=== PATIENT | female | born 1995 | race Hispanic/Latino ===

== ENCOUNTER 2024-02-24 19:28 | Emergency (ER) | payer OTHER, SELFPAY ==
[2024-02-24] MEDS ORDERED: HYDROCODONE/APAP 5/325 MG TAB ONE (19:43)
[2024-02-24] MEDS ORDERED: KETOROLAC 30 MG/ML INJ ONE (19:43)
[2024-02-24] MEDS ORDERED: dexAMETHasone 10 MG/ML VIAL ONE (19:43)
[2024-02-24] MEDS ORDERED: DIAZEPAM 5 MG TABLET ONE (19:46)
[2024-02-24 22:00] LABS: Specific Gravity 1.025 (1.005-1.030)
[2024-02-24 22:02] LABS: Specific Gravity 1.025 (1.005-1.030); Sqamous Epithelial <5 /HPF (None Seen); Urine Bacteria None Seen /HPF (<20); Urine Bilirubin NEGATIVE (Negative); Urine Blood Negative (Negative); Urine Clarity Clear (Clear); Urine Color Light-Yellow (Yellow); Urine Crystals Unidentified Few /HPF (None Seen); Urine Culture Reflex Order NOT NEEDED; Urine Glucose NEGATIVE (Negative); Urine Ketones 1+ (Negative); Urine Microscopic Reflex YN ORDER UMIC; Urine Mucus 3+ /HPF (None Seen); Urine Nitrite NEGATIVE (Negative); Urine Protein TRACE (Negative); Urine RBC <5 /HPF (None Seen); Urine Urobilinogen 1+ (Normal); Urine WBC <5 /HPF (<5); Urine pH 8.5 (5.0-7.0)
--- NOTE | 2024-02-24 22:23 | ER ---
Nurse's Notes [facility] Name: Tere Hurtado Age: 28 yrs Sex: Female : 1995 Arrival Date: 02/24/2024 Time: 19:28 Bed 9 Private MD: Diagnosis: Low back pain Presentation: 02/23 19:37 Chief complaint: Patient states: "This afternoon, my lower back started hurting and mb9 radiates down both legs. I didn't fall or have injury. I have numbness/tingling in my lower legs. I can barley walk.". Coronavirus screen: At this time, the client does not indicate any symptoms associated with coronavirus-19. Ebola Screen: No symptoms or risks identified at this time. Initial Sepsis Screen: Does the patient meet any 2 criteria? No. Patient's initial sepsis screen is negative. Does the patient have a suspected source of infection? No. Patient's initial sepsis screen is negative. Risk Assessment: Do you want to hurt yourself or someone else? Patient reports no desire to harm self or others. Onset of symptoms was February 24, 2024. 19:37 Acuity: GOLDEN 3 mb9 19:37 Method Of Arrival: Wheelchair mb9 Triage Assessment: 19:40 General: Appears uncomfortable, Behavior is anxious, crying. Pain: Complains of pain in mb9 back Pain radiates to right leg and left leg Pain currently is 10 out of 10 on a pain scale. Quality of pain is described as sharp, shooting, Pain began suddenly, Is continuous. EENT: No signs and/or symptoms were reported regarding the EENT system. Neuro: Rodriguez Agitation-Sedation Scale (RASS): 0 - Alert and Calm Level of Consciousness is awake, alert, obeys commands, Oriented to person, place, time, situation, Appropriate for age. Cardiovascular: Patient's skin is warm and dry. Respiratory: Airway is patent Respiratory effort is even, unlabored, Respiratory pattern is regular, symmetrical. GI: No signs and/or symptoms were reported involving the gastrointestinal system. : No signs and/or symptoms were reported regarding the genitourinary system. Derm: Skin is pink, warm \\T\\ dry. Musculoskeletal: Range of motion: limited in back and bilateral legs. 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 - Infectious Disease History:: Denies. - Social history:: Smoking status: Patient denies any tobacco usage or history of. Screenin:51 [facility] ED Fall Risk Assessment (Adult) History of falling in the last 3 months, mb9 including since admission No falls in past 3 months (0 pts) Confusion or Disorientation No (0 pts) Intoxicated or Sedated No (0 pts) Impaired Gait Yes (1 pt) Mobility Assist Device Used Yes (1 pt) Altered Elimination No (0 pt) Score/Fall Risk Level 3 or more points = High Risk Oriented to surroundings, Maintained a safe environment, Educated pt \\T\\ family on fall prevention, incl call for assistance when getting out of bed. Abuse screen: Denies threats or abuse. Nutritional screening: No deficits noted. Tuberculosis screening: No symptoms or risk factors identified. Assessment: 19:51 Reassessment: see triage assessment. mb9 20:09 General: Appears in no apparent distress. Behavior is calm, cooperative, appropriate vc1 for age. Pain: Complains of pain in back Pain radiates to left leg and right leg Quality of pain is described as sharp, shooting. Neuro: Level of Consciousness is awake, alert, obeys commands, Oriented to person, place, time, situation, Appropriate for age. Cardiovascular: Heart tones S1 S2 Capillary refill < 3 seconds Patient's skin is warm and dry. Rhythm is regular. Respiratory: Airway is patent Respiratory effort is even, unlabored, Respiratory pattern is regular, symmetrical, Breath sounds are clear bilaterally. GI: No deficits noted. No signs and/or symptoms were reported involving the gastrointestinal system. : No deficits noted. No signs and/or symptoms were reported regarding the genitourinary system. EENT: No deficits noted. No signs and/or symptoms were reported regarding the EENT system. Derm: Skin is intact, is healthy with good turgor, Skin is dry, Skin is normal, Skin temperature is warm. Musculoskeletal: Reports pain in left leg and right leg and back. 23:01 Reassessment: Patient and/or family updated on plan of care and expected duration. Pain vc1 level reassessed. Patient is alert, oriented x 3, equal unlabored respirations, skin warm/dry/pink. Patient states feeling better. Patient states symptoms have improved. Vital Signs: 19:37 BP 113 / 80; Pulse 96; Resp 16; Temp 98.2; Pulse Ox 100% on R/A; Weight 81.65 kg; mb9 Height 5 ft. 2 in. ; Pain 10/10; 23:01 BP 110 / 78; Pulse 88; Resp 17; Pulse Ox 100% ; vc1 19:37 Body Mass Index 32.92 (81.65 kg, 157.48 cm) mb9 19:37 Pain Scale: Adult mb9 ED Course: 19:30 Patient arrived in ED. mr 19:34 Sigifredo Marybeth, [facility] kb 19:34 Alli Ma MD is Attending Physician. kb 19:40 Triage completed. mb9 19:40 Arm band placed on. mb9 19:52 Sharmaine Zendejas, TRUDY is Primary Nurse. mb9 19:52 Bed in low position. Call light in reach. Side rails up X 1. Adult w/ patient. Provided mb9 Education on: press call light if needing anything. Client placed on continuous cardiac and pulse oximetry monitoring. NIBP monitoring applied. 19:52 No provider procedures requiring assistance completed. mb9 21:57 Urinalysis w/ reflexes Sent. oe 21:57 Test, Urine Sent. oe 23:01 Patient did not have IV access during this emergency room visit. vc1 Administered Medications: 19:51 Drug: Ketorolac IM 30 mg IM once Route: IM; Site: left deltoid; mb9 19:51 Drug: Dexamethasone IM 10 mg IM once Route: IM; Site: right deltoid; mb9 19:51 Drug: Diazepam PO 5 mg PO once Route: PO; mb9 19:51 Drug: HYDROcodone-acetaminophen PO 5 mg-325 mg 1 tabs PO once Route: PO; mb9 Medication: 19:52 VIS not applicable for this client. mb9 Outcome: 22:22 Discharge ordered by . kb 23:00 Discharged to home ambulatory, vc1 23:00 Condition: good 23:00 Discharge instructions given to patient, Instructed on discharge instructions, follow up and referral plans. Demonstrated understanding of instructions, follow-up care, Prescriptions given X 3, 23:02 Patient left the ED. vc1 Signatures: Marybeth Mei, KIMBERLEY-C WARPER FIXER-Sharmaine Langford Reg Reg mr EspinosaMarlon Vanessa RN RN vc1 Sharmaine Zendejas, RN RN mb9
--- NOTE | 2024-02-24 22:23 | EDPHYS ---
Physician Documentation [facility] Name: Tere Hurtado Age: 28 yrs Sex: Female : 1995 Arrival Date: 02/24/2024 Time: 19:28 Bed 9 Private MD: ED Physician Alli Ma HPI: 02/23 22:31 This 28 yrs old Female presents to ER via Wheelchair with complaints of Back kb Pain, Leg Pain. 22:31 Pt is a 28 year old female who presents with low back pain that started a few hours kb ago. States she was laying down when she started to have some pain and the pain became more and more severe. States the pain radiates to buttock. Denies numbness, tingling, urinary symptoms, bladder/bowel incontinence/retention. Denies injury or trauma. . 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 - Infectious Disease History:: Denies. - Social history:: Smoking status: Patient denies any tobacco usage or history of. ROS: 22:29 Constitutional: As per HPI kb Exam: 22:29 Head/Face: Normocephalic, atraumatic. ENT: Moist Mucous membranes Cardiovascular: kb Regular rate Respiratory: Respirations even and unlabored. No increased work of breathing. Talking in full sentences Abdomen/GI: Soft, non-tender. No distention Skin: Warm, dry with normal turgor. Normal color. MS/ Extremity: Pulses equal, no cyanosis. Neurovascular intact. Full, normal range of motion. Neuro: Awake and alert, GCS 15, oriented to person, place, time, and situation. Moves all extremities. Normal gait. 22:29 Constitutional: The patient appears alert, awake, in obvious pain, kb 22:29 Back: pain, that is moderate, of the low back area, Vital Signs: 19:37 BP 113 / 80; Pulse 96; Resp 16; Temp 98.2; Pulse Ox 100% on R/A; Weight 81.65 kg; mb9 Height 5 ft. 2 in. ; Pain 10/10; 23:01 BP 110 / 78; Pulse 88; Resp 17; Pulse Ox 100% ; vc1 19:37 Body Mass Index 32.92 (81.65 kg, 157.48 cm) mb9 19:37 Pain Scale: Adult mb9 MDM: 19:34 Patient medically screened. kb 22:30 Differential diagnosis: uti, strain, fracture, sciatica. Data reviewed: vital signs, kb nurses notes. Test considered but Not performed: X-ray: x-ray considered but pt denies injury or trauma . Counseling: I had a detailed discussion with the patient and/or guardian regarding the historical points, exam findings, and any diagnostic results supporting the discharge/admit diagnosis, lab results, the need for outpatient follow up, a family practitioner, to return to the emergency department if symptoms worsen or persist or if there are any questions or concerns that arise at home. ED course: Symptoms improved after treatment. Pt ready to go home. 02/23 19:40 Order name: Test, Urine; Complete Time: 22:18 kb 02/23 19:40 Order name: Urinalysis w/ reflexes; Complete Time: 22:18 kb Administered Medications: 19:51 Drug: Ketorolac IM 30 mg IM once Route: IM; Site: left deltoid; mb9 19:51 Drug: Dexamethasone IM 10 mg IM once Route: IM; Site: right deltoid; mb9 19:51 Drug: Diazepam PO 5 mg PO once Route: PO; mb9 19:51 Drug: HYDROcodone-acetaminophen PO 5 mg-325 mg 1 tabs PO once Route: PO; mb9 Disposition Summary: 02/24/24 22:22 Discharge Ordered Notes: Location: Home kb Condition: Stable kb Diagnosis - Low back pain kb Followup: kb - With: Emergency Department - When: As needed - Reason: Worsening of condition Followup: kb - With: Private Physician - When: 2 - 3 days - Reason: Recheck today's complaints, Continuance of care, Re-evaluation by your physician Discharge Instructions: - Discharge Summary Sheet kb - Acute Back Pain, Adult kb - Musculoskeletal Pain kb Forms: - Work release form kb - Family Work Release kb - Medication Reconciliation Form kb - Antibiotic Education kb - Prescription Opioid Use kb - Patient Portal Instructions kb - Leadership Thank You Letter kb Prescriptions: - Prednisone 20 mg Oral Tablet - take 1 tablet ORAL route once daily for 5 days; 5 tablet; Refills: 0, Product kb Selection Permitted - Diclofenac Sodium 75 mg Oral tablet, delayed release (enteric coated) - take 1 tablet ORAL route 2 times per day As needed; 30 tablet; Refills: 0, kb Product Selection Permitted - orphenadrine citrate 100 mg Oral Tablet Sustained Release - take 1 tablet ORAL route 2 times per day As needed; 20 tablet; Refills: 0, kb Product Selection Permitted Signatures: Dispatcher [employer] EDNM Marybeth Mei, KIMBERLEY-C PSYCH SOCIAL WORKER-Sharmaine Cazares RN RN mb9 Corrections: (The following items were deleted from the chart) 19:41 19:41 Test, Urine+UC.LAB.BRZ ordered. EDNM EDMS 19:41 19:41 Urinalysis+U.LAB.BRZ ordered. EDNM EDMS 22:30 22:29 Constitutional: This is a well developed, well nourished patient who is awake, kb alert, and in no acute distress. kb 22:32 22:31 Pt is a 28 year old female who presents with low back pain that started a few kb hours ago. States she was laying down when she started to have some pain and the pain became more and more severe. States the pain radiates to buttock. Denies numbness, tingling, urinary symptoms, bladder/bowel incontinence/retention. . kb
[2024-02-24 23:13] VITALS: TEMP 98.2; O2SAT 100
[2024-02-24 23:17] VITALS: BP 110/78
== END 2024-02-24 23:02 | disposition home or self-care (01) ==
LOC: ER 19:28
DX: M54.50 Low back pain, unspecified (principal)
CPT/HCPCS: 81001; 81025; J1100

== ENCOUNTER 2024-08-15 10:47 | Emergency (ER) | payer OTHER ==
--- OUTSIDE RECORDS SUMMARY | 2024-08-15 10:50 | XMS REPORT | Continuity of Care Document ---
Author Name Unknown Address [address] [facility] [place]. [address] th[address] Address [address] [facility]. [address] [place] [address] Care Team Providers Care Bracelet And Brooch Maker Name Role Phone [email or web address] Attending Clinician CHRISTINA Burnette Attending Clinician Unavailable Christina Grider PA-C Attending Clinician [phone] Sudha Vazquez MD Attending Clinician [phone] Morgan Womack Attending Clinician [phone] [email or web address] Admitting Clinician Joaquin elkins Payers Payer Name Policy Type Policy Number Effective Date Expirati on Date Source [facility] STATE [id number] 2018 00:00:00 Problems Condition Name Condition Details Condition Category Status Onset Date Resolution Date Last Treatment Date Treating Clinician Comments Source Obesity (BMI 30-39.9) Obesity (BMI 30-39.9) Disease Active 8-19 00:00: 00 [facility] Nausea and vomiting during prior to 22 weeks gestation Nausea and vomiting during prior to 22 weeks gestation Disease Active 3-13 00:00: 00 [facility] Obesity in Obesity in Disease Active 2 00:00: 00 [facility] Chlamydia trachomati s infection in mother during , antepartum Chlamydia trachomati s infection in mother during , antepartum Disease Active 2 00:00: 00 [facility] Rubella non-immune status, antepartum Rubella non-immune status, antepartum Disease Active 08-25 00:00: 00 Overview: Address in [place] mKatiana [facility] Primigravi da in second trimester Primigravi da in second trimester Disease Active 08-25 00:00: 00 [facility] High risk , antepartum High risk , antepartum Disease Active 08-24 00:00: 00 [facility] Allergies, Adverse Reactions, Alerts Allergy Name Allergy Type Status Severity Reaction(s) Onset Date Inactive Date Treating Clinician Comments Source NO KNOWN ALLERGIE S Drug Class Active [facility] Social History Social Habit Start Date Stop Date Quantity Comments Source ASSERTION 2018-08-04 00:00:00 [facility] Alcohol intake [facility] Sex Assigned At [facility] Smoking Status Start Date Stop Date Source Never smoker [facility] Medications Ordered Medication Name Filled Medication Name Start Date Stop Date Current Medication? Ordering Clinician Indication Dosage Frequency Signature (SIG) Comments Components Source vit 33-iron-fol ic-dha (SELECT-OB + DHA) 29 mg iron-1 mg -250 mg combo pack 08-31 00:00: 00 Yes [id number] 1{packe t} Take 1 Packet by mouth daily. [facility] Vital Signs Vital Name Observation Time Observation Value Comments S devyn Systolic blood pressure 2019-03-29 19:01:00 114 mm[Hg] [facility] Diastolic blood pressure 2019-03-29 19:01:00 80 mm[Hg] [facility] Heart rate 2019-03-29 19:01:00 92 /min [facility] Body temperature 2019-03-29 19:01:00 36.61 Bina [facility] Respiratory rate 2019-03-29 19:01:00 18 /min [facility] Body height 2019-03-29 19:01:00 157.5 cm [facility] Body weight 2019-03-29 19:01:00 92.534 kg [facility] BMI 2019-03-29 19:01:00 37.31 kg/m2 [facility] Systolic blood pressure 2019-03-15 16:54:00 103 mm[Hg] [facility] Diastolic blood pressure 2019-03-15 16:54:00 70 mm[Hg] [facility] Heart rate 2019-03-15 16:54:00 88 /min [facility] Body temperature 2019-03-15 16:54:00 36.56 Bina [facility] Respiratory rate 2019-03-15 16:54:00 18 /min [facility] Body height 2019-03-15 16:54:00 157.5 cm Univ [facility] Body weight 2019-03-15 16:54:00 87.544 kg [facility] BMI 2019-03-15 16:54:00 35.30 kg/m2 [facility] Systolic blood pressure 2019-02-28 16:20:00 104 mm[Hg] [facility] Diastolic blood pressure 2019-02-28 16:20:00 72 mm[Hg] [facility] Heart rate 2019-02-28 16:20:00 77 /min [facility] Body temperature 2019-02-28 16:20:00 36.72 Bina [facility] Respiratory rate 2019-02-28 16:20:00 18 /min [facility] Body height 2019-02-28 16:20:00 157.5 cm [facility] Body weight 2019-02-28 16:20:00 86.637 kg [facility] BMI 2019-02-28 16:20:00 34.93 kg/m2 [facility] Systolic blood pressure 2019-02-17 15:43:00 112 mm[Hg] [facility] Diastolic blood pressure 2019-02-17 15:43:00 71 mm[Hg] [facility] Heart rate 2019-02-17 15:43:00 80 /min [facility] Body temperature 2019-02-17 15:43:00 37.28 Bina [facility] Respiratory rate 2019-02-17 15:43:00 16 /min [facility] Body height 2019-02-17 15:43:00 157.5 cm [facility] Body weight 2019-02-17 15:43:00 83.462 kg [facility] BMI 2019-02-17 15:43:00 33.65 kg/m2 [facility] Procedures Procedure Date / Time Performed Performing Clinicia n Source POCT URINALYSIS W/O SPECIFIC GRAVITY 2019-03-29 00:00:00 Sudha Vazquez [facility] POCT URINALYSIS 2019-02-17 15:44:00 Morgan Mckeon [facility] Encounters Start Date/Time End Date/Time Encounter Type Admission Type Attending [facility] Care Facility Care Department Encounter ID Source 2023-05-09 00:00:00 2023-05-09 00:00:00 Outpatient [email or web address]_S [facility] [id number] [facility] 2019-11-22 08:00:00 2019-11-22 08:00:00 Outpatient R MARNI CHRISTINA [facility] [id number] [facility] 2019-03-29 13:56:01 2019-03-29 14:25:31 Routine Visit Marni Christina Sudha Vazquez [facility] [id number] [facility] 2019-03-15 11:38:45 2019-03-15 12:16:38 Routine Visit YobaniChristina wing [facility] [id number] [facility] 2019-02-28 10:48:40 2019-02-28 11:57:33 Initial Visit Sudha Vazquez [facility] [id number] [facility] 2019-02-17 10:37:24 2019-02-17 11:27:50 Routine Visit Morgan Mckeon [facility] [employer] [facility] [id number] [facility] Results Test Description Test Time Test Comments Results Result Co mments Source [facility] [id number] 19:03:00* Test Item Value Reference Range Interpretation Comme nts POCT PH U (test code = 3254) N/A 5-8 POCT U LEUK EST (test code = 3263) N/A Negative - Negative POCT U NIT (test code = 3262) N/A Negative - Negati ve POCT U PROT (test code = 3259) Negative Negative - Negat fran POCT U GLU (test code = 3256) Negative Negative - Negati ve POCT U KETONE (test code = 3258) N/A Negative - Neg ative POCT U BLD (test code = 3257) N/A Negative - Negati ve [facility] SPECIFIC [id number] 15:45:00* Test Item Value Reference Range Interpretation Comme nts POCT U SP GRAV (test code = 3255) . 1.005-1.025 POCT PH U (test code = 3254) . 5-8 POCT U LEUK EST (test code = 3263) . Negative - N egative POCT U NIT (test code = 3262) . Negative - Negati ve POCT U PROT (test code = 3259) trace Negative - Negat fran POCT U GLU (test code = 3256) neg Negative - Negati ve POCT U KETONE (test code = 3258) . Negative - Neg ative POCT U UROBILI (test code = 3260) . 0.2-1 POCT U BILI (test code = 3261) . Negative - Negat fran POCT U BLD (test code = 3257) . Negative - Negati ve POCT U COLOR (test code = 3266) POCT U APPEAR (test code = 3267) [facility]
--- NOTE | 2024-08-15 11:20 | ER ---
Nurse's Notes [facility] Name: Tere Hurtado Age: 28 yrs Sex: Female : 1995 Arrival Date: 08/15/2024 Time: 10:47 Bed DX3 Private MD: Diagnosis: Urticaria, unspecified Presentation: 08/15 11:11 Chief complaint: Patient states: Bumps to R leg started about 1 week ago. Now bumps ll1 have spread to L leg, they are tender, but no itching. Both arms/shoulder feel sore and tender. No fever. Coronavirus screen: Client denies travel out of the [place] in the last 14 days. At this time, the client does not indicate any symptoms associated with coronavirus-19. Ebola Screen: Patient denies travel to an Ebola-affected area in the 21 days before illness onset. Initial Sepsis Screen: Does the patient meet any 2 criteria? No. Patient's initial sepsis screen is negative. Does the patient have a suspected source of infection? No. Patient's initial sepsis screen is negative. Risk Assessment: Do you want to hurt yourself or someone else? Patient reports no desire to harm self or others. Onset of symptoms was August 08, 2024. 11:11 Method Of Arrival: Ambulatory ll1 11:11 Acuity: GOLDEN 4 ll1 Historical: - Allergies: 11:11 No Known Allergies; ll1 - Home Meds: 11:11 None [Active]; ll1 - PMHx: 11:11 None; ll1 - PSHx: 11:11 section; ll1 - Immunization history:: Adult Immunizations up to date. - Infectious Disease History:: Denies. - Social history:: Smoking status: Patient denies any tobacco usage or history of. Screenin:15 [facility] ED Fall Risk Assessment (Adult) History of falling in the last 3 months, kb3 including since admission No falls in past 3 months (0 pts) Confusion or Disorientation No (0 pts) Intoxicated or Sedated Yes (3 pts) Impaired Gait No (0 pts) Mobility Assist Device Used Yes (1 pt) Altered Elimination Yes (1 pt) Score/Fall Risk Level 0 - 2 = Low Risk Oriented to surroundings. Abuse screen: Denies threats or abuse. Denies injuries from another. Nutritional screening: No deficits noted. Tuberculosis screening: No symptoms or risk factors identified. Assessment: 11:15 Reassessment: Patient appears in no apparent distress at this time. No changes from kb3 previously documented assessment. Patient and/or family updated on plan of care and expected duration. Pain level reassessed. 11:15 Pain: Complains of pain in right leg and left leg. Derm: Skin is intact, Skin is dry, kb3 Skin is pink, warm \T\ dry. Rash noted that is macular, red, raised. Vital Signs: 11:11 BP 131 / 88; Pulse 92; Resp 17; Temp 97.6; Pulse Ox 100% ; Weight 81.65 kg; Height 5 ll1 ft. 2 in. ; Pain 4/10; 11:11 Body Mass Index 32.92 (81.65 kg, 157.48 cm) ll1 11:11 Pain Scale: Adult ll1 ED Course: 10:49 Patient arrived in ED. ec2 10:57 Todd Yousif DO is Attending Physician. ms3 11:11 Arm band placed on. ll1 11:13 Triage completed. ll1 11:15 Patient has correct armband on for positive identification. Provided Education on: kb3 Educated regarding side effects of prednisone, follow up with PCP in 2-3 days. 11:15 No provider procedures requiring assistance completed. Patient did not have IV access kb3 during this emergency room visit. 11:19 Steven Valenzuela DO is Referral Physician. ms3 Administered Medications: 11:35 Drug: predniSONE PO 60 mg PO once Route: PO; kb3 11:40 Follow up: Response: No adverse reaction; Medication administered at discharge. kb3 Medication: 11:15 VIS not applicable for this client. kb3 Outcome: 11:19 Discharge ordered by . ms3 11:40 Discharged to home ambulatory, kb3 11:40 Condition: good kb3 11:40 Discharge instructions given to patient, Instructed on discharge instructions, follow up and referral plans. medication usage, Demonstrated understanding of instructions, follow-up care, medications, Prescriptions given X 1, 11:45 Patient left the ED. kb3 Signatures: Taras Banerjee RN RN ll1 Todd Yousif DO DO ms3 Jazlyn Farias RN RN kb3 Alex De La Vega MD MD 2
--- NOTE | 2024-08-15 11:20 | EDPHYS ---
Physician Documentation [facility] Name: Tere Hurtado Age: 28 yrs Sex: Female : 1995 Arrival Date: 08/15/2024 Time: 10:47 Bed DX3 Private MD: ED Physician Todd Yousif HPI: 08/15 11:21 This 28 yrs old Female presents to ER via Ambulatory with complaints of bumps ms3 on legs. 11:21 Jennifer Hurtado, a 28-year-old female, presents to the Emergency Department with ms3 painful bumps on her legs. She reports that the issue began on her right leg and then spread to the other leg, with the bumps becoming very painful over the past week. The bumps do not itch. Jennifer has not been outdoors or exposed to grass, and reports not experiencing any insect bites. She elevated her feet, which provided some relief. . Historical: - Allergies: 11:11 No Known Allergies; ll1 - Home Meds: 11:11 None [Active]; ll1 - PMHx: 11:11 None; ll1 - PSHx: 11:11 section; ll1 - Immunization history:: Adult Immunizations up to date. - Infectious Disease History:: Denies. - Social history:: Smoking status: Patient denies any tobacco usage or history of. ROS: 11:21 Constitutional: Negative for fever, and chills. Cardiovascular: Negative for chest ms3 pain, and palpitations. Respiratory: Negative for shortness of breath, cough, wheezing, and pleuritic chest pain, Abdomen/GI: Negative for abdominal pain, nausea, vomiting, diarrhea, and constipation, MS/Extremity: Negative for injury and deformity, 11:21 Skin: Positive for bumps on bilateral legs, Exam: 11:21 Constitutional: This is a well developed, well nourished patient who is awake, alert, ms3 and in no acute distress. Cardiovascular: Regular rate and rhythm with a normal S1 and S2. No gallops, murmurs, or rubs. Normal PMI, no JVD. No pulse deficits. Respiratory: Lungs have equal breath sounds bilaterally, clear to auscultation and percussion. No rales, rhonchi or wheezes noted. No increased work of breathing, no retractions or nasal flaring. Abdomen/GI: Soft, non-tender, with normal bowel sounds. No distension or tympany. No guarding or rebound. No evidence of tenderness throughout. 11:21 Skin: rash can be described as urticarial, on the Bilateral lower extremities, Vital Signs: 11:11 BP 131 / 88; Pulse 92; Resp 17; Temp 97.6; Pulse Ox 100% ; Weight 81.65 kg; Height 5 ll1 ft. 2 in. ; Pain 4/10; 11:11 Body Mass Index 32.92 (81.65 kg, 157.48 cm) ll1 11:11 Pain Scale: Adult ll1 MDM: 11:19 Medical Screening Exam initiated ms3 11:21 Differential diagnosis: Uriticaria vs Folliculitis. Data reviewed: vital signs, nurses ms3 notes, and as a result, I will discharge patient. I considered the following discharge prescriptions or medication management in the emergency department Medications were administered in the Emergency Department. See MAR. Counseling: I had a detailed discussion with the patient and/or guardian regarding the historical points, exam findings, and any diagnostic results supporting the discharge/admit diagnosis, the need for outpatient follow up, to return to the emergency department if symptoms worsen or persist or if there are any questions or concerns that arise at home. Special discussion: I discussed with the patient/guardian in detail that at this point there is no indication for admission to the hospital. It is understood, however, that if the symptoms persist or worsen the patient needs to return immediately for re-evaluation. ED course: Discussed physical exam findings with patient. Patient to follow-up with primary care physician in 2 to 3 days. All questions were answered. Return precautions discussed include worsening symptoms, or any other concerns.. Administered Medications: 11:35 Drug: predniSONE PO 60 mg PO once Route: PO; kb3 11:40 Follow up: Response: No adverse reaction; Medication administered at discharge. kb3 Disposition Summary: 08/15/24 11:19 Discharge Ordered Notes: Location: Home ms3 Condition: Stable ms3 Diagnosis - Urticaria, unspecified ms3 Followup: ms3 - With: Steven Valenzuela, DO - When: 2 - 3 days - Reason: Re-evaluation by your physician Discharge Instructions: - Discharge Summary Sheet ll1 - Hives, [id number] ms3 Forms: - Work release form ll1 - Medication Reconciliation Form ms3 - Antibiotic Education ms3 - Prescription Opioid Use ms3 - Patient Portal Instructions ms3 - Leadership Thank You Letter ms3 Prescriptions: - Prednisone 20 mg Oral Tablet - take 2 tablets ORAL route once daily for 5 days; 10 tablet; Refills: 0, Product ms3 Selection Permitted Signatures: Taras Banerjee RN RN ll1 Todd Yousif DO DO ms3 Jazlyn Farias RN RN kb3
[2024-08-15] MEDS ORDERED: predniSONE 20 MG TAB ONE (11:32)
[2024-08-15 11:56] VITALS: BP 131/88; TEMP 97.6; O2SAT 100
== END 2024-08-15 11:45 | disposition home or self-care (01) ==
LOC: ER 10:47
DX: L50.9 Urticaria, unspecified (principal)
CPT/HCPCS: 99283; J7512